=== PATIENT | female | born 1950 | race Caucasian/White ===

== ENCOUNTER 2018-10-29 08:08 | Emergency (ER) | payer OTHER ==
[~2018-10-29] VITALS: Wt 60.5 kg
[~2018-10-29 08:08] MED LIST: BENA10TA; HYDR10TA; INSU100C5; LEVO-86; METF-480; OMEP20CA9; ZOC10
[2018-10-29 08:13] VITALS: BP 119/69; PULSE 68; RESP 18
[2018-10-29] MEDS ORDERED: NAPR-985 PO (09:33)
--- NOTE | 2018-10-29 10:15 | ERD ---
ER Documentation Chief Complaint Chief Complaint LEFT GREAT TOE PAIN AND SWELLING AFTER HITTING IT 3 DAYS AGO HPI 57-year-old female presenting with left great toe pain after she hit it on concrete 3 days ago. She is been taking naproxen with no alleviation of symptoms. She denies any numbness or tingling but has pain with ambulation. Medical history is diabetes type 2. Allergies glipizide. Surgical history of pituitary gland removal. Social history denies ROS All systems reviewed and are negative except as per history of present illness. Medications Home Meds Active Scripts Naproxen* (Naprosyn*) 500 Mg Tablet, 500 MG PO BID PRN for PAIN AND/OR INFLAMMATION, #30 TAB Prov:VANESSA SIN PA-C 10/29/18 Reported Medications Insulin Glargine,Hum.rec.anlog (Lantus) 100 U/Ml Cartridge 10/12/12 Omeprazole* (Prilosec*) 20 Mg Capsule. 10/12/12 Levothyroxine Sodium (Levothroid) 100 Mcg Tablet 10/12/12 Simvastatin (Simvastatin) 10 Mg Tablet 10/12/12 Metformin* (Glucophage*) 850 Mg Tablet 10/12/12 Benazepril Hcl* (Lotensin*) 10 Mg Tablet 10/12/12 Hydrocortisone (Cortef) 10 Mg Tablet 10/12/12 Allergies Allergies: Coded Allergies: glipizide (Verified Allergy, Intermediate, 10/12/12) PMhx/Soc Medical and Surgical Hx: pt denies Medical Hx, pt denies Surgical Hx History of Surgery: No Anesthesia Reaction: No Hx Neurological Disorder: No Hx Respiratory Disorders: No Hx Cardiac Disorders: No Hx Psychiatric Problems: No Hx Miscellaneous Medical Probl: Yes (HTN, Diabetes) Hx Alcohol Use: No Hx Substance Use: No Hx Tobacco Use: No Smoking Status: Never smoker FmHx Family History: No diabetes, No coronary disease, No other Physical Exam Vitals Vital Signs Date Temp Pulse Resp B/P (MAP) Pulse Ox O2 O2 Flow FiO2 Time Delivery Rate 10/29/18 98.0 68 18 119/69 99 08:13 (86) Physical Exam GENERAL: The patient is well-appearing, well-nourished, in no acute distress CHEST: Clear to auscultation bilaterally. There are no rales, wheezes or rhonchi. HEART: Regular rate and rhythm. No murmurs, clicks, rubs or gallops. EXTREMITIES: Palpation over the left great toe. No lacerations or abrasions. Limited range of motion secondary to pain. NEUROLOGIC: Alert and oriented. Cranial nerves II through XII intact. Motor strength in all 4 extremities with 5 out of 5 strength. Sensation grossly intact. Normal speech and gait. SKIN: Oozing noted to toe. Procedures/MDM DIAGNOSTIC IMAGING REPORT Patient: CAMPBELL MAXWELL : 1950 Age: 67 Sex: F MR #: [id number] DOS: 10/29/18 0833 Ordering MD: SANDRA SIN PA-C Location: [facility] Room/Bed: PROCEDURE: Left great toe series CLINICAL INDICATION: Left great toe pain TECHNIQUE: AP oblique and lateral views of the left great toe were obtained COMPARISON: None available FINDINGS: An acute , closed, nondisplaced fracture of the left medial base with intra- articular extension is noted. Soft tissue swelling is present. Vascular calcifications are noted. Mild hallux valgus is present. Mineralization and joint spaces are normal. No dislocation is present. IMPRESSION: 1. Acute, closed, nondisplaced, left medial base of the distal phalanx of the great toe with intra-articular extension . 2. Vascular calcifications compatible with a diabetic foot or atherosclerotic vascular disease 3. Mild hallux valgus 4. Soft tissue swelling of the left great toe ER Course: Ortho Shoe applied in ED. MDM: 67-year-old female presenting with toe pain. I have low suspicion for tendon or ligament rupture. Patient does have a fracture however looks to be stable. Patient is recommended to refrain from excessive weightbearing activities and to wear or so shoe for support. Patient is told symptoms change or worsen to return immediately to the ER. All questions answered at discharge Departure Diagnosis: Primary Impression: Toe fracture Condition: Stable Patient Instructions: Fracture, Toe [Closed] Additional Instructions: FOLLOW UP WITH YOUR PRIMARY CARE PHYSICIAN TOMORROW.Return to this facility if you are not improving as expected. VANESSA SIN PA-C Oct 29, 2018 10:15
== END 2018-10-29 10:26 | disposition home or self-care (01) ==
LOC: FTE 08:08
DX: S92.425A Nondisplaced fracture of distal phalanx of left great toe, initial encounter for closed fracture (principal); E11.9 Type 2 diabetes mellitus without complications; I10 Essential (primary) hypertension; W22.09XA Striking against other stationary object, initial encounter; Y92.9 Unspecified place or not applicable; Z79.84 Long term (current) use of oral hypoglycemic drugs
CPT/HCPCS: 73660; Z7502